=== PATIENT | male | born 1955 | race Caucasian/White ===

== ENCOUNTER 2017-10-02 07:32 | Day surgery (SDC) | payer BC, OTHER ==
[~2017-10-02 07:32] MED LIST: Cefuroxime 10 MG/ML SYRINGE EYELF SCH; Lidocaine 1% PF 2 ML SDV INJECT SCH; Pilocarpine 4% Ophth Soln 15 ML Bot EYELF SCH; Tetracaine HCl/PF 0.5% 4 ML Bottle EYELF SCH
[2017-10-02] MEDS: Polymyxin B/Trimethoprim 10 ML Bottle EYELF SCH ×3 (07:45→09:23)
[2017-10-02] MEDS: Brimonidine 0.2% Ophth Soln 5 ML Bottle EYELF SCH ×3 (07:48→09:23)
[2017-10-02] MEDS: Phenylephrine 2.5% Ophth Soln 2 ML Bot EYELF SCH ×5 (07:53→09:01)
--- NOTE | 2017-10-02 07:53 | PCM.PREANE ---
Preanesthetic Assessment - Anesthesia/Transfusion/Family Hx Anesthesia History: Prior Anesthesia Without Reaction Family History of Anesthesia Reaction: No - Review of Systems General: No Symptoms Pulmonary: No Symptoms Cardiovascular: Other (HTN) Gastrointestinal: No Symptoms Neurological: No Symptoms Other: Reports: Diabetes ([id number]) - Physical Assessment NPO Status Date: 10/01/17 NPO Status Time: 22:30 Pulse: 87 O2 Sat by Pulse Oximetry: 97 Respiratory Rate: 16 Blood Pressure: 111/68 Temperature: 36.2 C Weight: 98.883 kg ASA Class: 2 Mental Status: Alert & Oriented x3 Airway Class: Mallampati = 2 Dentition: Reports: Normal Dentition Thyro-Mental Finger Breadths: 3 Mouth Opening Finger Breadths: 3 ROM/Head Extension: Full Lungs: Clear to Auscultation, Normal Respiratory Effort Cardiovascular: Regular Rate, Regular Rhythm - Allergies Allergies/Adverse Reactions: Allergies Allergy/AdvReac Type Severity Reaction Status Date / Time No Known Allergies Allergy Verified 10/01/17 15:08 - Blood Blood Available: No Product(s) Available: None - Anesthesia Plan Pre-Op Medication Ordered: None - Acknowledgements Anesthesia Type Planned: MAC Pt an Appropriate Candidate for the Planned Anesthesia: Yes Alternatives and Risks of Anesthesia Discussed w Pt/Guardian: Yes Pt/Guardian Understands and Agrees with Anesthesia Plan: Yes PreAnesthesia Questionnaire - HOME MEDS Home Medications: Home Meds Canagliflozin [Invokana] 300 mg PO ASDIRECTED 10/01/17 [History] Insulin Glarg,Human.Rec.Analog [LantUS Solostar] 1 dose SQ ASDIRECTED 10/01/17 [ History] Insulin Lispro [Humalog Kwikpen U-100] 1 dose SQ ASDIRECTED 10/01/17 [History] Lisinopril 20 mg PO ASDIRECTED 10/01/17 [History] SitaGLIPtin [Januvia] 100 mg PO ASDIRECTED 10/01/17 [History] Tamsulosin [Flomax] 0.4 mg PO ASDIRECTED 10/01/17 [History] atorvaSTATin [Lipitor] 10 mg PO ASDIRECTED 10/01/17 [History] metFORMIN HCl [Metformin HCl] 1,000 mg PO ASDIRECTED 10/01/17 [History] - CURRENT (IN HOUSE) MEDS Current Meds: Current Medications Brimonidine Tartrate (Alphagan 0.2% Ophth Soln) 0 ml EYELF ASDIRECTED МАРИЯ Stop: 10/02/17 18:00 Cefuroxime Sodium (Zinacef) 0 mg EYELF ASDIRECTED МАРИЯ Stop: 10/02/17 18:00 Lidocaine HCl (Xylocaine-Mpf 1%) 10 ml INJECT ASDIRECTED МАРИЯ Stop: 10/02/17 18:00 Phenylephrine HCl (Dewey-Synephrine 2.5% Ophth Soln) 0 ml EYELF ASDIRECTED МАРИЯ Stop: 10/02/17 18:00 Pilocarpine HCl (Pilocar 4% Ophth Soln) 0 ml EYELF ASDIRECTED МАРИЯ Stop: 10/02/17 18:00 Polymyxin/Trimethoprim Sulfate (Polytrim Ophth Soln) 0 ml EYELF ASDIRECTED МАРИЯ Stop: 10/02/17 18:00 Last Admin: 10/02/17 07:45 Dose: 1 drop Tropicamide (Mydriacyl 1% Ophth Soln) 0 ml EYELF ASDIRECTED МАРИЯ Stop: 10/02/17 18:00 Discontinued Medications Tetracaine HCl (Tetracaine 0.5% Steri-Unit Alana) 0 ml EYELF ASDIRECTED МАРИЯ Stop: 10/02/17 06:01
[2017-10-02] MEDS: Tetracaine HCl/PF 0.5% 4 ML Bottle EYELF SCH ×2 (08:49→09:13)
--- NOTE | 2017-10-02 09:23 | PCM48HPAN ---
Post Anesthesia Note - EVALUATION WITHIN 48HRS OF ANESTHETIC Vital Signs in Normal Range: Yes Patient Participated in Evaluation: Yes Respiratory Function Stable: Yes Airway Patent: Yes Cardiovascular Function Stable: Yes Hydration Status Stable: Yes Pain Control Satisfactory: Yes Nausea and Vomiting Control Satisfactory: Yes Mental Status Recovered: Yes
== END 2017-10-02 09:33 | disposition home or self-care (01) ==
LOC: JD.SDS 07:32
PROVIDERS: ATTEND Ophthalmology
DX: H25.013 Cortical age-related cataract, bilateral (principal); H25.813 Combined forms of age-related cataract, bilateral; H31.093 Other chorioretinal scars, bilateral; H02.836 Dermatochalasis of left eye, unspecified eyelid; H02.833 Dermatochalasis of right eye, unspecified eyelid; H11.153 Pinguecula, bilateral; H35.372 Puckering of macula, left eye; E10.36 Type 1 diabetes mellitus with diabetic cataract; I10 Essential (primary) hypertension; Z79.899 Other long term (current) drug therapy; Z79.84 Long term (current) use of oral hypoglycemic drugs; Z87.442 Personal history of urinary calculi; Z98.890 Other specified postprocedural states
CPT/HCPCS: 66984; C1780; J0697; A9270-GY